=== PATIENT | male | born 1995 | race Caucasian/White ===

== ENCOUNTER 2018-03-27 23:41 | Inpatient (IN) | payer OTHER, SELFPAY ==
[~2018-03-27 23:41] MED LIST: ISOVUE-370 76%-LOCM 1 ML ONE
[2018-03-27] MEDS ORDERED: Morphine 4 MG/ML VIAL ONE (23:49)
[2018-03-27] MEDS ORDERED: Adacel (T-DAP) 0.5 ML VIAL ONE (23:49)
[2018-03-27] MEDS ORDERED: Cefepime 2 GM/10 ML SYR ONE (23:49)
[2018-03-28 00:30] LABS: INR-International Normal Ratio 1.1
[2018-03-28 00:31] LABS: PTT 22.6 SEC (22.9-36.1)
[2018-03-28 00:35] LABS: #Basophils 0.1 thou/uL (0.0-0.2); #Eosinphils 0.1 thou/uL (0.0-0.7); #Lymphocytes 4.1 thou/uL (1.20-3.40); #Monocytes 0.7 thou/uL (0.11-0.59); #Neutrophils 4.7 thou/uL (1.40-6.50); %Basophils 0.7 % (0.0-1.0); %Eosinophils 1.1 % (0.0-10.0); %Lymphocytes 42.2 % (21.0-51.0); %Monocytes 7.2 % (0.0-10.0); %Neutrophils 48.8 % (42.0-75.0); Hemoglobin 13.5 g/dL (14.0-18.0); Mean Corpuscular HGB CONC 33.3 g/dL (32.0-36.0); Mean Corpuscular Hemoglobin 32.3 pg (27.0-31.0); Mean Corpuscular Volume 97.1 fl (80.0-94.0); Mean Platelet Volume 7.5 fL (7.4-10.4); Platelet Count 227 thou/uL (130-400); RBC Distribution Width 13.1 % (11.5-14.5); Red Blood Cell (RBC) Count 4.17 mill/uL (4.70-6.10); White Blood Cell (WBC) Count 9.7 thou/uL (4.8-10.8)
[2018-03-28 00:54] LABS: ALT (SGPT) 136 U/L (8-55); AST (SGOT) 119 U/L (5-34); Albumin 4.2 g/dL (3.5-5.0); Alkaline Phosphatase 37 U/L (40-150); Anion Gap 14 mmol/L (10-20); BUN (Urea Nitrogen) 25 mg/dL (8.9-20.6); Bilirubin, Total 0.4 mg/dL (0.2-1.2); CK (CPK) 165 U/L (30-200); Calc. Creatinine Clearance 0 mL/min (70-130); Calcium 8.8 mg/dL (7.8-10.44); Carbon Dioxide 26 mmol/L (22-29); Chloride 106 mmol/L (98-107); Estimated GFR-MDRD 61; Globulin 2.5 g/dL (2.4-3.5); Glucose 121 mg/dL (70-105); Potassium 4.8 mmol/L (3.5-5.1); Protein, Total 6.7 g/dL (6.0-8.3); Sodium 141 mmol/L (136-145)
[2018-03-28] MEDS ORDERED: Dextrose 5% in Water 1,000 ML IV PRN (01:00)
[2018-03-28] MEDS ORDERED: Ondansetron ODT 4 MG TAB PO PRN (01:00)
[2018-03-28] MEDS ORDERED: Ondansetron HCl/PF 4 MG/2 ML Vial IVP PRN ×2 (01:00→09:25)
[2018-03-28] MEDS ORDERED: Dextrose 50% Abboject 50 ML SYRINGE SLOW IVP PRN (01:00)
[2018-03-28] MEDS ORDERED: Morphine 4 MG/ML VIAL ONE (01:57)
[2018-03-28 03:49] VITALS: BMI 23.6
[2018-03-28] MEDS: traMADol HCl 50 MG TAB PO SCH ×4 (04:03→21:10)
[2018-03-28] MEDS: Morphine 4 MG/ML VIAL SLOW IVP PRN ×3 (04:04→06:57)
[2018-03-28] MEDS: Acetaminophen 500 MG TAB PO SCH ×4 (04:04→21:10)
[2018-03-28] MEDS: Sodium Chloride 0.9% 1,000 ML IV SCH ×2 (04:04→08:29)
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
[2018-03-28] MEDS: Ketorolac Tromethamine 30 MG/ML VIAL IVP SCH ×4 (04:59→23:51)
[2018-03-28 05:56] LABS: Anion Gap 9 mmol/L (10-20); BUN (Urea Nitrogen) 23 mg/dL (8.9-20.6); Calc. Creatinine Clearance 116 mL/min (70-130); Calcium 8.5 mg/dL (7.8-10.44); Carbon Dioxide 27 mmol/L (22-29); Chloride 108 mmol/L (98-107); Estimated GFR-MDRD Greater than 90; Glucose 127 mg/dL (70-105); Potassium 4.8 mmol/L (3.5-5.1); Sodium 139 mmol/L (136-145)
[2018-03-28] MEDS ORDERED: Midazolam HCl 2 mg/2 ml Vial ONE (06:55)
[2018-03-28] MEDS ORDERED: Fentanyl 100 MCG/2 ML VIAL ONE ×3 (06:55→09:12)
[2018-03-28] MEDS ORDERED: CEFAZOLIN/Water 2 GM/20 ML SYRINGE ONE (07:46)
[2018-03-28] MEDS ORDERED: CEFAZOLIN 2 GM in Sodium Chloride 0.9% 100 ML IVPB SCH (08:00)
[2018-03-28] MEDS ORDERED: CEFAZOLIN/Water 2 GM/20 ML SYRINGE SLOW IVP SCH (08:00)
[2018-03-28] MEDS: Senokot S 8.6-50 MG TAB PO SCH ×2 (08:29→21:09)
[2018-03-28 08:57] LABS: #Lymphocytes 0.7 thou/uL (1.20-3.40); #Monocytes 1.1 thou/uL (0.11-0.59); #Neutrophils 12.6 thou/uL (1.40-6.50); %Basophils 0.1 % (0.0-1.0); %Eosinophils 0.2 % (0.0-10.0); %Lymphocytes 4.8 % (21.0-51.0); %Monocytes 7.7 % (0.0-10.0); %Neutrophils 87.2 % (42.0-75.0); Hemoglobin 12.5 g/dL (14.0-18.0); Mean Corpuscular HGB CONC 33.8 g/dL (32.0-36.0); Mean Corpuscular Hemoglobin 32.6 pg (27.0-31.0); Mean Corpuscular Volume 96.5 fl (80.0-94.0); Mean Platelet Volume 7.5 fL (7.4-10.4); Platelet Count 199 thou/uL (130-400); RBC Distribution Width 13.2 % (11.5-14.5); Red Blood Cell (RBC) Count 3.83 mill/uL (4.70-6.10); White Blood Cell (WBC) Count 14.5 thou/uL (4.8-10.8)
--- NOTE | 2018-03-28 09:09 | RAD ---
PELVIC RADIOGRAPH: DATE: 03/27/18. PROVIDED CLINICAL HISTORY: Trauma. FINDINGS: No evidence for a fracture or other acute osseous abnormality. Please correlate with subsequently pe rformed CT examination. POS: [facility]
--- NOTE | 2018-03-28 09:09 | RAD ---
LEFT FEMORAL RADIOGRAPHS 2 VIEWS: DATE: 03/27/18. PROVIDED CLINICAL HISTORY: Left leg pain status post injury. FINDINGS: There is a displaced transversely oriented fracture involving the proximal left femoral shaft with as sociated posterior displacement of the distal fracture fragment and fracture fragment overriding. Ap ex lateral angulation of the fracture site. Radiodensities are noted projecting over the soft tissue s of the thigh which may reflect foreign bodies. IMPRESSION: Displaced left femoral fracture. POS: [facility]
--- NOTE | 2018-03-28 09:10 | RAD ---
PORTABLE CHEST: DATE: 03/27/18. PROVIDED CLINICAL HISTORY: Trauma. FINDINGS/IMPRESSION: Cardiac and mediastinal silhouette is within normal limits for the portable technique. No focal airs pace disease is evident. The supine nature of the study is not sensitive for detection of pleural fl uid or pneumothorax. The bony thorax appears grossly intact. Please correlate with subsequently per formed CT examination. POS: [facility]
[2018-03-28] MEDS ORDERED: Meperidine HCl/PF 25 MG/ML VIAL SLOW IVP PRN (09:25)
[2018-03-28] MEDS ORDERED: Promethazine HCl 25 MG/ML VIAL IM PRN (09:25)
[2018-03-28] MEDS ORDERED: Promethazine HCl 25 MG/ML VIAL SLOW IVP PRN (09:25)
[2018-03-28] MEDS ORDERED: HYDROmorphone 0.5 MG/0.5 ML SYRINGE ONE (09:33)
[2018-03-28] MEDS ORDERED: Meperidine HCl/PF 25 MG/ML VIAL ONE (10:43)
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
--- NOTE | 2018-03-28 15:24 | RAD ---
TWO VIEWS LEFT FEMUR: Date: 03-28-18 Provided Clinical History: ORIF FINDINGS: Spot fluoroscopic images of the left femur demonstrate interval antegrade intramedullary femoral rajni placement transfixing previously described midshaft left femoral fracture with associated locking pro ximal and distal screws. Resultant improved alignment. IMPRESSION: As above. POS: [facility]
[2018-03-28] MEDS: CEFAZOLIN/Water 2 GM/20 ML SYRINGE SLOW IVP SCH ×2 (16:51→23:52)
[2018-03-28] MEDS ORDERED: PROPOFOL 200 MG/20 ML VIAL ONE (16:52)
[2018-03-28] MEDS ORDERED: Succinylcholine Chloride 20 MG/ML 10 ml SYRINGE FS ONE (16:52)
[2018-03-28] MEDS ORDERED: Lidocaine 1% PF 5 ML VIAL ONE (16:52)
[2018-03-28] MEDS ORDERED: Glycopyrrolate 0.2 MG/ML 5 ML SYRINGE ONE (16:52)
[2018-03-28] MEDS ORDERED: Ketorolac Tromethamine 30 MG/ML VIAL ONE (16:52)
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
[2018-03-28] MEDS ORDERED: Enoxaparin Sodium 40 MG/0.4 ML SYRINGE SC SCH (21:00)
[2018-03-29] MEDS: Acetaminophen 500 MG TAB PO SCH ×3 (01:06→14:34)
[2018-03-29] MEDS: traMADol HCl 50 MG TAB PO SCH ×3 (01:06→14:35)
[2018-03-29 05:05] LABS: #Lymphocytes 1.3 thou/uL (1.20-3.40); #Monocytes 1.1 thou/uL (0.11-0.59); #Neutrophils 7.8 thou/uL (1.40-6.50); %Basophils 0.3 % (0.0-1.0); %Eosinophils 0.4 % (0.0-10.0); %Monocytes 10.3 % (0.0-10.0); Hemoglobin 10.8 g/dL (14.0-18.0); Mean Corpuscular Hemoglobin 33.3 pg (27.0-31.0); Mean Corpuscular Volume 97.8 fl (80.0-94.0); Mean Platelet Volume 7.7 fL (7.4-10.4); Platelet Count 161 thou/uL (130-400); Red Blood Cell (RBC) Count 3.25 mill/uL (4.70-6.10); White Blood Cell (WBC) Count 10.2 thou/uL (4.8-10.8)
[2018-03-29 05:35] LABS: Anion Gap 10 mmol/L (10-20); BUN (Urea Nitrogen) 16 mg/dL (8.9-20.6); Calc. Creatinine Clearance 134 mL/min (70-130); Calcium 8.3 mg/dL (7.8-10.44); Carbon Dioxide 28 mmol/L (22-29); Chloride 105 mmol/L (98-107); Estimated GFR-MDRD Greater than 90; Glucose 93 mg/dL (70-105); Phosphorus 4.2 mg/dL (2.3-4.7); Potassium 4.1 mmol/L (3.5-5.1); Sodium 139 mmol/L (136-145)
[2018-03-29] MEDS: Ketorolac Tromethamine 30 MG/ML VIAL IVP SCH ×2 (06:09→12:08)
[2018-03-29] MEDS: Senokot S 8.6-50 MG TAB PO SCH (08:33)
[2018-03-29 11:50] VITALS: BP 141/78; TEMP 97.9
[2018-03-29] MEDS ORDERED: Ibuprofen 800 MG TAB PO PRN (12:43)
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
== END 2018-03-29 16:00 | disposition home or self-care (01) | DRG 482 ==
LOC: ERS 23:41 → EDBD 23:41 → ERHOLD 03-28 01:00 → SURG A 03-28 03:42
PROVIDERS: ADMIT Surgery; ATTEND Surgery
PROC: 0QS904Z Reposition Left Femoral Shaft with Internal Fixation Device, Open Approach (ICD-10-PCS; principal; 2018-03-28)
PROC: 0YQG0ZZ Repair Left Knee Region, Open Approach (ICD-10-PCS; 2018-03-28)
PROC: 0WQ0XZZ Repair Head, External Approach (ICD-10-PCS; 2018-03-28)
DX: S72.302A Unspecified fracture of shaft of left femur, initial encounter for closed fracture (principal); S81.012A Laceration without foreign body, left knee, initial encounter; V44.5XXA Car driver injured in collision with heavy transport vehicle or bus in traffic accident, initial encounter; S02.2XXA Fracture of nasal bones, initial encounter for closed fracture; F12.90 Cannabis use, unspecified, uncomplicated; S01.81XA Laceration without foreign body of other part of head, initial encounter
CPT/HCPCS: 12011; 36415; 70450; 71045; 71260; 72125; 72170; 74177; 76001; 80048; 80053; 82550; 83605; 83690; 83735; 84100; 85025; 85610; 85730; 90471; 90715; 93005; 96361; 96374; 96375; 96376; C1713; C1769; G0390; G8978-GP-CI; G8979-GP-CI; G8980-GP-CI; J0692; J1170; J1650; J1885; J2001; J2175; J2250; J2270; J2704; J3010; Q0162